=== PATIENT | male | born 1930 | race Caucasian/White ===

== ENCOUNTER 2016-10-10 06:25 | Emergency (ER) | payer MEDICARE, BC ==
[2016-10-10 06:34] VITALS: BP 136/60
[2016-10-10] MEDS ORDERED: PHENYLEPHRINE HCL 150 SPRAY BTL NS ONE ×2 (06:48→06:52)
--- OUTSIDE RECORDS SUMMARY | 2016-10-10 06:49 | XMS REPORT | Continuity of Care Document ---
:1930 Author Organization [facility] ([facility]) Address [address] [place] [address] Phone [phone] Care Team Providers Name Role Phone Jessica Moonjaiden Primary Care Provider [phone] Source Comments This disclosure is being made pursuant to the Care Everywhere program, applicable federal and state laws, and may not contain all informaitonavailable regarding this patient.[facility] ([facility]) Active Allergies and Adverse Reactions Allergen Noted Date Severity Reactions Comments Ciprofloxacin 09/27/2015 Unknown Possible reaction Current Medications Prescription Sig. Disp. Refills Start Date End Date Status ATORVASTATIN 40 mg Take 1 Tab by 11/07/2014 Active tablet mouth daily LEVOTHYROXINE 75 mcg Take 1 Tab by 09/14/2014 Active tablet mouth daily TAMSULOSIN 0.4 mg Take 1 Cap by 11/05/2014 Active capsule mouth daily FOLIC Take 1 Cap by Active ACID/MULTIVIT-MIN/LUTEI mouth daily N (CENTRUM SILVER PO) cholecalciferol Take 1,000 Units Active (VITAMIN D3) 1,000 unit by mouth daily tablet glucosamine & chondroit Take 2 capsules Active sul.Na 750-400 mg cmpk by mouth daily. calcium carbonate PO Take 1,000 mg by Active mouth daily artificial tears Instill 1 Drop Active (GENTEAL) 0.3 % onto both eyes 3 ophthalmic solution times daily as needed losartan 50 mg tablet Take 50 mg by 3 09/19/2015 Active mouth daily. amiodarone 200 mg Take 1 tablet 90 tablet 4 09/27/2015 Active tablet (200 mg total) by mouth daily. lactobacillus rhamnosus Take 1 capsule Active (gg) (CULTURELLE) 15 by mouth daily. billion cell capsule finasteride 5 mg tablet Take 5 mg by Active mouth daily. metoPROLol tartrate 50 Take 1 tablet 180 tablet 4 07/31/2016 Active mg tablet (50 mg total) by mouth 2 times daily. warfarin 1 mg tablet Take 1.5 tablets 60 tablet 8 08/09/2016 Active (1.5 mg total) by mouth at bedtime. Active Problems Problem Noted Date Severe sepsis(995.92) 05/28/2015 Non-sustained ventricular tachycardia 05/28/2015 Atrial fibrillation with RVR 05/26/2015 Eyelid lesion 11/17/2014 Paroxysmal atrial fibrillation Overview: Formatting of this note may be different from the original. CARDIOVASCULAR PROCEDURES ECHO/MUGA: Echo (EF.45, Mild Global Hypo) - 05/30/2010 Echo:Decreased LV systolic function.40-50% Apical echoes consistent with trabeculae are noted. Cannot rule out associated thrombi. No significant valvular disease. 05/26/2015 STRESS TESTS: Meño MPI (Normal EF, Large Inferior Scar) - 06/12/2010 Meño MPI (Normal EF(.54), MILD Inferior Scar) - 10/07/2015 Hyperlipemia Hypertension S/P carotid endarterectomy COPD (chronic obstructive pulmonary disease) H/O non-ST elevation myocardial infarction (NSTEMI) Resolved Problems Problem Noted Date Resolved Date UTI (urinary tract infection), bacterial 05/28/2015 07/19/2015 Elevated troponin 05/26/2015 07/31/2016 Most Recent Encounters Date Type Specialty Providers Description 08/09/2016 Refill Cardiac Rehabilitation Estela Conrad MD Dx: Paroxysmal atrial fibrillation (Primary Dx) 07/31/2016 Office Visit Heart and Vascular Estela Conrad MD Dx: Paroxysmal atrial fibrillation (Primary Dx) Social History Tobacco Use Types Packs/Day Years Used Date Former Smoker Smokeless Tobacco: Never Used Tobacco Cessation:Counseling Given: Yes Comments: Alcohol Use Drinks/Week oz/Week Comments No Last Filed Vital Signs Vital Sign Reading Time Taken Blood Pressure 118/70 07/31/2016 9:55 AM IN FILE OPERATOR Pulse 66 07/31/2016 9:55 AM IN FILE OPERATOR Temperature 36.8 C (98.2 F) 05/28/2015 8:32 AM IN FILE OPERATOR Respiratory Rate 18 05/28/2015 11:38 AM IN FILE OPERATOR Height 1.778 m (5' 10") 07/31/2016 9:55 AM IN FILE OPERATOR Weight 89.812 kg (198 lb) 07/31/2016 9:55 AM IN FILE OPERATOR Body Mass Index 28.41 07/31/2016 9:55 AM IN FILE OPERATOR Oxygen Saturation 96% 05/28/2015 8:32 AM IN FILE OPERATOR Plan of Care Date Type Specialty Providers Description 03/26/2017 Appointment Heart and Vascular Estela Conrad MD Chief Comp: Patient [address] [place] [address] Visit [phone] (Fax) Health Maintenance Due Date Last Done Comments Hepatitis B Vaccine (1 of 3 - Primary Series) 1930 Tdap Vaccine 1940 Lipid Disorder Screening 1948 Td Vaccine 1948 Zoster Vaccine 1989 Pneumococcal Vaccine (1 of 2 - PCV13) 1994 Influenza Vaccine: Seasonal (#1) 02/06/2016 Results from Last 3 Months Not on file
--- NOTE | 2016-10-10 06:58 | ERNOTE ---
ENT HPI Presenting Symptoms: nosebleed Time Seen by Provider: 10/10/16 06:40 Source: patient, family Exam Limitations: no limitations - Immun/Allergies/Home Medications Immunizations: IMMUNIZATION HX Immunizations Up to Date Yes History of Influenza Vaccine Yes Hx Pneumococcal Vaccination Yes Allergies/Adverse Reactions: Allergies Allergy/AdvReac Type Severity Reaction Status Date / Time ciprofloxacin [From Cipro] AdvReac Verified 10/10/16 06:34 ciprofloxacin HCl AdvReac Verified 10/10/16 06:34 [From Cipro] Home Medications: HOME MEDICATIONS Atorvastatin Calcium [Lipitor] 40 mg PO HS 12/22/14 [Last Taken 09/12/15 20:00] Levothyroxine Sodium [Synthroid] 75 mcg PO DAILY 12/22/14 [Last Taken 09/13/15 08:00] Multivit-Min/FA/Lycopene/Lut [Centrum Silver Tablet] 1 each PO DAILY 12/22/14 [ Last Taken 09/13/15 08:00] Tamsulosin HCl [Flomax] 0.4 mg PO DAILY@1800 12/22/14 [Last Taken 09/11/15] Albuterol Sulfate 2.5 mg IH BID PRN 05/25/15 [Last Taken 09/11/15] Albuterol Sulfate [Ventolin Hfa] 2 puff IH Q4H PRN 05/25/15 [Last Taken Unknown] Calcium/Magnesium/Vit D3 [Calcium 500 mg Tablet] 2 each PO HS 05/25/15 [Last Taken 09/12/15 20:00] Cholecalciferol (Vitamin D3) [Vitamin D3] 2,000 unit PO DAILY 05/25/15 [Last Taken 09/13/15 08:00] Glucosamine HCl 500 mg PO BID 05/25/15 [Last Taken 09/13/15 08:00] Acetaminophen [Tylenol] 650 mg PO QID PRN #20 tablet 09/12/15 [Last Taken Unknown] Warfarin Sodium [Coumadin] 2 mg PO WE 09/15/15 [Last Taken Unknown] Amiodarone HCl [Cordarone] 200 mg PO DAILY 02/22/16 [Last Taken Unknown] L.acidoph,Paracasei, B.lactis [Probiotic] 1 each PO DAILY 02/22/16 [Last Taken Unknown] Losartan Potassium [Cozaar] 50 mg PO DAILY 02/22/16 [Last Taken Unknown] Warfarin Sodium [Coumadin] 1 mg PO SUMOTUTHFRSA 02/22/16 [Last Taken Unknown] Finasteride [Proscar] 5 mg PO DAILY 04/25/16 [Last Taken Unknown] Metoprolol Tartrate [Lopressor] 50 mg PO BID #60 tablet 05/21/16 [Last Taken Unknown] - History of Present Illness Narrative: Pt had spontaneous onset of epistaxis while getting dressed this AM. pt put pressure on his nose and bleeding had stopped upon his arrival in the ED. INR was 5.22 yesterday Severity: Present: mild ENT Location: Present: nose - left nare Prearrival Treatment: Present: squeezing nostrils Modifying Factors - Worsens: Reports: medication - Pt's INR was found to be high yesterday and he is holding his coumadin today and tomorrow Review of Systems - Review of Systems Constitutional: Present: no symptoms reported EYE: Present: no symptoms reported ENT: Absent: nose pain, nose congestion Respiratory: Present: no symptoms reported Cardiology: Present: no symptoms reported Gastrointestinal/Abdominal: Present: no symptoms reported Genitourinary: Present: no symptoms reported Musculoskeletal: Present: no symptoms reported Skin: Present: no symptoms reported Neurological: Present: no symptoms reported Endocrine: Present: no symptoms reported Hematologic/Lymphatic: Present: no symptoms reported Psych: Present: no symptoms reported - Patient's Past Medical History Patient History - Medical: Cataracts, Hypothyroidism, UTI'S, Other Patient History - Cardiac/Respiratory: Atrial Fibrillation, COPD, Hypertension, Hyperlipidemia Patient History - Cancer: No Hx of Cancer, Skin Patient History - Surgical Procedures: Cataracts, Other Patient History - Other: None - Family History Sister Family History - Cardiac/Respiratory: No pertinent hx Mother Family History - Medical: , Diabetes Type 2 Family History - Cardiac/Respiratory: No pertinent hx, CVA/Stroke Father Family History - Medical: , Renal Disease Family History - Cardiac/Respiratory: No pertinent hx, COPD Brother Family History - Medical: Alzheimer's Disease Family History - Cardiac/Respiratory: COPD - Social History Living Situations: alone Abuse History: No History of abuse Psych History: No pertinent hx Smoking Status: Never smoker Alcohol Use: sober Drug Use: none - Immunizations Immunizations Up to Date: Yes Hx Pneumococcal Vaccination: Yes History of Influenza Vaccine: Yes Physical Exam - Physical Exam General Appearance: Present: wd/wn, alert, no apparent distress Eye Exam: Normal inspection: bilateral Ears, Nose, Throat: Absent: nasal congestion - fresh blood in floor of left nasal passage. No active bleeding noted. Site of bleeding not readily visible Neck: Present: normal inspection, nontender Respiratory: Present: no respiratory distress Extremity Exam: Present: normal inspection, normal range of motion Neurological Exam: Present: alert, oriented, normal mood/affect Skin Exam: Present: normal color, warm/dry ED Progress - Results and Orders Patient's Lab Results:: I have reviewed the patient's lab results. Results and Orders: Pt.s INR was 5.22 yesterday - Vital Signs Patient's Vital Signs:: I have reviewed the patient's vital signs. Vital Signs: Vital Signs 10/10/16 06:27 Temperature 35.9 C L Pulse Rate 75 Respiratory 14 Rate Blood Pressure 136/60 O2 Sat by Pulse 94 Oximetry - Progress/Reassessment Chief Complaint: Nose Bleed Departure Clinical Impression: Anterior epistaxis, Elevated INR - Departure Disposition: Home Follow Up Needed Condition: Fair Instructions: Nosebleed, [id number] Additional Instructions: may use nose spray 1 or 2 times a day for the next 2 days if you have any more bleeding. Return to ER if bleeding returns and you cannot get it to stop with pressure and the nose spray. Referrals: Rangel Moon MD [Primary Care Provider] -
== END 2016-10-10 07:00 | disposition home or self-care (01) ==
LOC: ER 06:25
DX: R04.0 Epistaxis (principal); T45.515A Adverse effect of anticoagulants, initial encounter; R79.1 Abnormal coagulation profile; E03.9 Hypothyroidism, unspecified; I48.91 Unspecified atrial fibrillation; Z79.01 Long term (current) use of anticoagulants; J44.9 Chronic obstructive pulmonary disease, unspecified; I10 Essential (primary) hypertension; E78.5 Hyperlipidemia, unspecified

== ENCOUNTER 2017-01-17 07:05 | Emergency (ER) | payer MEDICARE, BC ==
--- NOTE | 2017-01-17 07:41 | ERNOTE ---
<Yaw Dickinson - Last Filed: 01/17/17 07:44> Dizziness ER Record Presenting Symptoms: dizziness Time Seen by Provider: 01/17/17 07:28 Source: patient, family Exam Limitations: no limitations Immunizations: IMMUNIZATION HX Immunizations Up to Date Yes History of Influenza Vaccine Yes Hx Pneumococcal Vaccination Yes Allergies/Adverse Reactions: Allergies Allergy/AdvReac Type Severity Reaction Status Date / Time ciprofloxacin [From Cipro] AdvReac Verified 01/17/17 07:15 ciprofloxacin HCl AdvReac Verified 01/17/17 07:15 [From Cipro] Home Medications: HOME MEDICATIONS Atorvastatin Calcium [Lipitor] 40 mg PO HS 12/22/14 [Last Taken 09/12/15 20:00] Levothyroxine Sodium [Synthroid] 75 mcg PO DAILY 12/22/14 [Last Taken 09/13/15 08:00] Multivit-Min/FA/Lycopene/Lut [Centrum Silver Tablet] 1 each PO DAILY 12/22/14 [ Last Taken 09/13/15 08:00] Tamsulosin HCl [Flomax] 0.4 mg PO DAILY@1800 12/22/14 [Last Taken 09/11/15] Albuterol Sulfate 2.5 mg IH BID PRN 05/25/15 [Last Taken 09/11/15] Albuterol Sulfate [Ventolin Hfa] 2 puff IH Q4H PRN 05/25/15 [Last Taken Unknown] Calcium/Magnesium/Vit D3 [Calcium 500 mg Tablet] 2 each PO HS 05/25/15 [Last Taken 09/12/15 20:00] Cholecalciferol (Vitamin D3) [Vitamin D3] 2,000 unit PO DAILY 05/25/15 [Last Taken 09/13/15 08:00] Glucosamine HCl 500 mg PO BID 05/25/15 [Last Taken 09/13/15 08:00] Acetaminophen [Tylenol] 650 mg PO QID PRN #20 tablet 09/12/15 [Last Taken Unknown] Amiodarone HCl [Cordarone] 200 mg PO DAILY 02/22/16 [Last Taken Unknown] L.acidoph,Paracasei, B.lactis [Probiotic] 1 each PO DAILY 02/22/16 [Last Taken Unknown] Losartan Potassium [Cozaar] 50 mg PO DAILY 02/22/16 [Last Taken Unknown] Warfarin Sodium [Coumadin] 1 mg PO SUMOTUTHFRSA 02/22/16 [Last Taken Unknown] Finasteride [Proscar] 5 mg PO DAILY 04/25/16 [Last Taken Unknown] Metoprolol Tartrate [Lopressor] 50 mg PO BID #60 tablet 05/21/16 [Last Taken Unknown] Sulfamethoxazole/Trimethoprim [Bactrim Ds] 1 tab PO BID #28 tab 01/17/17 [Last Taken Unknown] - History of Present Illness Narrative: Dizzy for a few days, worse on standing. Feels like having trouble focusing. Timing and Duration: gradual onset Noted on awakening:: No Severity: max: moderate, severe Severity: currently: moderate Sense of movement: Present: vague Decreased ability to stand/walk:: Present: off balance Usually:: Present: walks w/o assistance Modifying Factors - (Improves): Reports: nothing Modifying Factors - (Worsens): Reports: standing position Review of Systems - Review of Systems Constitutional: Absent: recent illness EYE: Absent: vision changes ENT: Present: nasal drainage - especially before/ during eating Respiratory: Present: no symptoms reported Cardiology: Absent: chest pain, palpitations Gastrointestinal/Abdominal: Absent: nausea, vomiting Genitourinary: Present: no symptoms reported Musculoskeletal: Present: no symptoms reported Skin: Present: no symptoms reported Neurological: Absent: headache, weakness, numbness Endocrine: Present: other - blood sugars have been a little elevated Hematologic/Lymphatic: Present: no symptoms reported Psych: Present: no symptoms reported - Patient's Past Medical History Patient History - Medical: Cataracts, Hypothyroidism, UTI'S, Other Patient History - Cardiac/Respiratory: Atrial Fibrillation, COPD, Hypertension, Hyperlipidemia Patient History - Cancer: No Hx of Cancer, Skin Patient History - Surgical Procedures: Cataracts, Other Patient History - Other: None - Family History Sister Family History - Cardiac/Respiratory: No pertinent hx Mother Family History - Medical: , Diabetes Type 2 Family History - Cardiac/Respiratory: No pertinent hx, CVA/Stroke Father Family History - Medical: , Renal Disease Family History - Cardiac/Respiratory: No pertinent hx, COPD Brother Family History - Medical: Alzheimer's Disease Family History - Cardiac/Respiratory: COPD - Social History Living Situations: home Abuse History: No History of abuse Psych History: No pertinent hx Alcohol Use: sober Drug Use: none - Immunizations Immunizations Up to Date: Yes Hx Pneumococcal Vaccination: Yes History of Influenza Vaccine: Yes Physical Exam - Physical Exam General Appearance: Present: wd/wn, alert, no apparent distress Head Exam: Present: normal inspection, no evidence of injury Eye Exam: Normal inspection: bilateral, PERRL: bilateral, EOMI: bilateral Ears, Nose, Throat: Present: nasal congestion - pale mucosa, normal pharynx Neck: Present: normal inspection, nontender, supple Respiratory: Present: no respiratory distress, normal breath sounds, lungs clear Cardiovascular/Chest: Present: bradycardia, irregularly irregular Gastrointestinal/Abdominal: Present: normal bowel sounds, nontender Back Exam: Present: no CVA tenderness, no vertebral tenderness Extremity Exam: Present: normal inspection, no edema Neurological Exam: Present: alert, oriented, normal mood/affect, no motor/ sensory deficits, public address announcer II-XII nml as tested, normal cerebellar test Skin Exam: Present: normal color, warm/dry Lymphatic Exam: Present: no adenopathy ED Progress - Vital Signs Vital Signs: Vital Signs 01/17/17 01/17/17 07:11 07:28 Temperature 35.9 C L Pulse Rate 64 61 Respiratory 12 12 Rate Blood Pressure 114/64 105/59 O2 Sat by Pulse 93 95 Oximetry - Progress/Reassessment Chief Complaint: Dizziness - Transfer of Care Physician Sign Out: Yaw Dickinson Receiving Physician: Wilder Kiran Expected Disposition: Discharge Departure Clinical Impression: Dizziness, UTI (urinary tract infection) - Departure Disposition: Home self-care Condition: Fair Instructions: Urinary Tract Infection, Adult, [id number] Referrals: Rangel Moon MD [Primary Care Provider] - Prescriptions: Sulfamethoxazole/Trimethoprim [Bactrim Ds] 1 tab PO BID #28 tab <Wilder Kiran - Last Filed: 01/17/17 09:10> Dizziness ER Record Immunizations: IMMUNIZATION HX Immunizations Up to Date Yes History of Influenza Vaccine Yes Hx Pneumococcal Vaccination Yes ED Progress - Vital Signs Vital Signs: Vital Signs 01/17/17 01/17/17 01/17/17 07:11 07:28 07:50 Temperature 35.9 C L Pulse Rate 64 61 61 Respiratory 12 12 12 Rate Blood Pressure 114/64 105/59 98/65 O2 Sat by Pulse 93 95 93 Oximetry 01/17/17 01/17/1717 07:58 08:10 08:33 Temperature Pulse Rate 61 59 L 58 L Respiratory 12 21 H Rate Blood Pressure 122/59 116/58 O2 Sat by Pulse 95 95 Oximetry 01/17/17 09:01 Temperature Pulse Rate 57 L Respiratory 14 Rate Blood Pressure 121/60 O2 Sat by Pulse 95 Oximetry
[2017-01-17 07:56] LABS: Hematocrit 37.5 % (42.0-52.0); Hemoglobin 12.6 gm/dL (13.5-18.0); Mean Cell Volume 90.8 fl (78-100); Mean Corpuscular Hemoglobin 30.5 pg (27-31); Mean Corpuscular Hgb Conc 33.6 g/dl (32-36); Mean Platelet Volume 10.1 fl (6.0-9.5); Neutrophil # 5.7 K/mm3 (1.3-6.0); Neutrophil % 63.4 % (42-75.0); Platelet Count 177 K/mm3 (150-450); Red Blood Count 4.13 M/mm3 (4.7-6.0); Red Cell Distribution Width 14.9 % (11.5-14.0)
[2017-01-17 08:09] LABS: Albumin * 3.2 gm/dl (3.4-5.0); Anion Gap 10.3 mmol/L (6.8-13.8); BUN/Creatinine Ratio 16.9 (9.0-21.6); Bilirubin, Total 0.6 mg/dL (0.0-1.1); Ca. Corrected For Albumin 8.8 mg/dL (8.4-10.2); Calcium * 8.5 mg/dL (7.9-10.9); Carbon Dioxide 26.9 mmol/L (24-32.6); Potassium 4.2 mmol/L (3.4-4.6); Total Protein 6.9 gm/dL (6.2-8.2)
[2017-01-17 08:18] LABS: Urine Bilirubin Negative (NEGATIVE); Urine Blood 25 /ul (NEGATIVE); Urine Ketone Negative (NEGATIVE); Urine Protein Negative (NEGATIVE); Urine Urobilinogen Normal (NORMAL)
[2017-01-17 08:24] LABS: Urine Appearance Cloudy; Urine Color Yellow; Urine Nitrite Positive (NEGATIVE); Urine WBC >50 /hpf (0-5)
[2017-01-17 08:25] LABS: Urine Bacteria 2+; Urine RBC 0-5 /hpf (0-5)
[2017-01-17 09:20] VITALS: BP 117/59
== END 2017-01-17 09:21 | disposition home or self-care (01) ==
LOC: ER 07:05
DX: R42 Dizziness and giddiness (principal); N39.0 Urinary tract infection, site not specified; E03.9 Hypothyroidism, unspecified; I48.91 Unspecified atrial fibrillation; Z79.01 Long term (current) use of anticoagulants; J44.9 Chronic obstructive pulmonary disease, unspecified; I10 Essential (primary) hypertension; E78.5 Hyperlipidemia, unspecified; Z85.828 Personal history of other malignant neoplasm of skin

== ENCOUNTER 2017-05-04 08:38 | Emergency (ER) | payer MEDICARE, BC ==
[2017-05-04 09:21] LABS: Hematocrit 41.2 % (42.0-52.0); Hemoglobin 13.9 gm/dL (13.5-18.0); Mean Cell Volume 93.4 fl (78-100); Mean Corpuscular Hemoglobin 31.5 pg (27-31); Mean Corpuscular Hgb Conc 33.7 g/dl (32-36); Neutrophil # 5.9 K/mm3 (1.3-6.0); Neutrophil % 66.9 % (42-75.0); Platelet Count 186 K/mm3 (150-450); Red Blood Count 4.41 M/mm3 (4.7-6.0); Red Cell Distribution Width 14.6 % (11.5-14.0); White Blood Count 8.8 K/mm3 (4.0-10.5)
[2017-05-04 09:31] LABS: Urine Bilirubin Negative (NEGATIVE); Urine Ketone Negative (NEGATIVE); Urine Protein Negative (NEGATIVE); Urine Urobilinogen Normal (NORMAL)
[2017-05-04 09:31] LABS: INR 1.79 INR (0.90-1.10)
[2017-05-04 09:40] LABS: Urine Appearance Slightly Cloudy; Urine Blood 10 /ul (NEGATIVE); Urine Color Yellow; Urine Nitrite Positive (NEGATIVE)
[2017-05-04 09:41] LABS: Urine Bacteria 3+; Urine RBC TRACE /hpf (0-5); Urine WBC 25-50 /hpf (0-5)
[2017-05-04 09:41] LABS: ALT 30 U/L (19-67); AST 22 U/L (0-48); Albumin * 3.5 gm/dl (3.4-5.0); Alkaline Phosphatase * 115 U/L (50-170); BUN/Creatinine Ratio 13.7 (9.0-21.6); Bilirubin, Total 0.8 mg/dL (0.0-1.1); Blood Urea Nitrogen 14 mg/dL (6-23); Ca. Corrected For Albumin 9.1 mg/dL (8.4-10.2); Carbon Dioxide 28.4 mmol/L (24-32.6); Chloride 103 mmol/L (97-106); Glucose * 112 mg/dL (70-110); Potassium 4.4 mmol/L (3.4-4.6); Sodium 141 mmol/L (132-142); Total Protein 7.4 gm/dL (6.2-8.2)
[2017-05-04 09:42] LABS: Troponin I Less than 0.017 ng/ml (0.00-0.10)
[2017-05-04] MEDS ORDERED: CEFUROXIME AXETIL 500 MG TABLET PO ONE (10:11)
[2017-05-04] MEDS ORDERED: CEFUROXIME AXETIL 500 MG TABLET ONE (10:14)
[2017-05-04 10:18] VITALS: BP 150/64
--- NOTE | 2017-05-04 10:29 | ERNOTE ---
Trauma/Assault HPI - Narrative Date of Service: 05/04/17 - General Stated Complaint: COLLAPSED Time Seen by Provider: 05/04/17 08:51 Source: patient Exam Limitations: no limitations - Immun/Allergies/Home Medications Immunizations: IMMUNIZATION HX Immunizations Up to Date Yes History of Influenza Vaccine Yes Hx Pneumococcal Vaccination Yes Allergies/Adverse Reactions: Allergies ciprofloxacin [From Cipro] Adverse Reaction (Verified 05/04/17 08:49) ciprofloxacin HCl [From Cipro] Adverse Reaction (Verified 05/04/17 08:49) Home Medications: HOME MEDICATIONS Atorvastatin Calcium [Lipitor] 40 mg PO HS 12/22/14 [Last Taken 09/12/15 20:00] Levothyroxine Sodium [Synthroid] 75 mcg PO DAILY 12/22/14 [Last Taken 09/13/15 08:00] Multivit-Min/FA/Lycopene/Lut [Centrum Silver Tablet] 1 each PO DAILY 12/22/14 [ Last Taken 09/13/15 08:00] Albuterol Sulfate 2.5 mg IH BID PRN 05/25/15 [Last Taken 09/11/15] Albuterol Sulfate [Ventolin Hfa] 2 puff IH Q4H PRN 05/25/15 [Last Taken Unknown] Calcium/Magnesium/Vit D3 [Calcium 500 mg Tablet] 2 each PO HS 05/25/15 [Last Taken 09/12/15 20:00] Cholecalciferol (Vitamin D3) [Vitamin D3] 2,000 unit PO DAILY 05/25/15 [Last Taken 09/13/15 08:00] Glucosamine HCl 500 mg PO BID 05/25/15 [Last Taken 09/13/15 08:00] Acetaminophen [Tylenol] 650 mg PO QID PRN #20 tablet 09/12/15 [Last Taken Unknown] Amiodarone HCl [Cordarone] 200 mg PO DAILY 02/22/16 [Last Taken Unknown] L.acidoph,Paracasei, B.lactis [Probiotic] 1 each PO DAILY 02/22/16 [Last Taken Unknown] Losartan Potassium [Cozaar] 50 mg PO DAILY 02/22/16 [Last Taken Unknown] Warfarin Sodium [Coumadin] 1 mg PO DAILY 02/22/16 [Last Taken Unknown] Metoprolol Tartrate [Lopressor] 50 mg PO BID #60 tablet 05/21/16 [Last Taken Unknown] Cefuroxime Axetil [Ceftin] 250 mg PO Q12H #20 tab 05/04/17 [Last Taken Unknown] Nitroglycerin [Nitrostat] 0.4 mg SL Q5MIN PRN 05/04/17 [Last Taken Unknown] - History of Present Illness Narrative: Patient presents to the ED after a fall. He hit his face and broke his dentures. Initially he told be he lost his balance, then he changed his mind abd thought maybe he passed out. Family states he has done this before with a UTI. he has some mild facial pain. No neck or back pain. Denies other injuries. No CP or SOB. No abdominal pain. He denies acute focal N/T/W. Is on Warfarin. No active bleeding. dT UTD. Here with family. Location Occurred: Reports: home Pain Location: Reports: face Method of Injury: Reports: fall Severity: mild Modifying Factors - (Improves): Reports: other - nothing Modifying Factors - (Worsens): Reports: other - nothing Loss of Consciousness: Reports: unsure Associated Symptoms - Trauma: Denies: headache, confusion, slurred speech, vision changes, chest pain, shortness of breath, abdominal pain Review of Systems - Review of Systems Constitutional: Absent: fever EYE: Present: other - recent eye surgery ENT: Absent: sore throat Respiratory: Absent: shortness of breath Cardiology: Absent: chest pain Gastrointestinal/Abdominal: Absent: abdominal pain Skin: Absent: rash Neurological: Absent: weakness - Patient's Past Medical History Patient History - Medical: Cataracts, Hypothyroidism, UTI'S, Other Patient History - Cardiac/Respiratory: Atrial Fibrillation, COPD, Hypertension, Hyperlipidemia Patient History - Cancer: No Hx of Cancer, Skin Patient History - Surgical Procedures: Cataracts, Other Patient History - Other: None - Family History Sister Family History - Cardiac/Respiratory: No pertinent hx Mother Family History - Medical: , Diabetes Type 2 Family History - Cardiac/Respiratory: No pertinent hx, CVA/Stroke Father Family History - Medical: , Renal Disease Family History - Cardiac/Respiratory: No pertinent hx, COPD Brother Family History - Medical: Alzheimer's Disease Family History - Cardiac/Respiratory: COPD - Social History Living Situations: home Abuse History: No History of abuse Psych History: No pertinent hx Smoking Status: Never smoker Alcohol Use: none Drug Use: none - Immunizations Immunizations Up to Date: Yes Hx Pneumococcal Vaccination: Yes History of Influenza Vaccine: Yes Physical Exam - Physical Exam General Appearance: Present: alert, no apparent distress Head Exam: Present: normal inspection. Absent: Concepcion's Sign, raccoon eyes Eye Exam: Normal inspection: bilateral - post surgical changes left eye noted, PERRL: bilateral Ears, Nose, Throat: Present: other - Mild bruising left zygomatic arch, appears older. Abrasion maxillary ridge. No laceration to repair or active bleeding Neck: Present: normal inspection, nontender, other - no posterior C-spine tenderness. No T/L spine tenderness Respiratory: Present: no respiratory distress, normal breath sounds, no accessory muscle use, lungs clear Cardiovascular/Chest: Present: regular rate, rhythm, normal peripheral pulses Gastrointestinal/Abdominal: Present: normal bowel sounds, nontender, soft Back Exam: Present: no vertebral tenderness Extremity Exam: Present: other - no deformity of suggestion of fracture Neurological Exam: Present: alert, no motor/sensory deficits, other - No acute unilateral focal motor or sensory deficits. Gait stable. Skin Exam: Present: normal color, warm/dry ED Progress - Results and Orders Patient's Lab Results:: I have reviewed the patient's lab results. - Vital Signs Patient's Vital Signs:: I have reviewed the patient's vital signs. Vital Signs: Vital Signs 05/04/17 05/04/17 05/04/17 08:43 09:14 10:01 Temperature 36.5 C Pulse Rate 60 60 55 L Respiratory 16 12 12 Rate Blood Pressure 166/75 155/60 140/58 O2 Sat by Pulse 98 97 95 Oximetry - EKG EKG: NSR EKG read: Interp. by me EKG Comments: NSR rate 61. Non-specific changes, no STEMI - CT/Ultrasound CT/Ultrasound Narrative: I reviewed official radiology report for HCT and Max/Fac CT. - Progress/Reassessment Chief Complaint: Fall Progress Note-Subjective: 05/04/17 10:27 Patient has UTI. No evidence of sepsis or toxicity. He declines hospital observation for this event this morning. He understands risks and benefits but wants to go home. I discussed warning signs and reasons to return as well as the need for close f/u. Departure Clinical Impression: Fall, Facial injury, Head injury, UTI (urinary tract infection) - Departure Disposition: Home self-care Condition: Stable Instructions: Urinary Tract Infection, Adult, [id number] Additional Instructions: Antibiotics as directed. Antibiotics can impact your coumadin, you will need to have this closely monitored by your doctor. Return here if you change your mind about observation, develop fever or if your condition worsens or changes in any way. Follow-up with your doctor in the next 2-3 days for a re-check. Referrals: Rangel Moon MD [Primary Care Provider] - Prescriptions: Cefuroxime Axetil [Ceftin] 250 mg PO Q12H #20 tab
== END 2017-05-04 10:32 | disposition home or self-care (01) ==
LOC: ER 08:38
DX: S09.93XA Unspecified injury of face, initial encounter (principal); W18.30XA Fall on same level, unspecified, initial encounter; Z91.81 History of falling; Y92.009 Unspecified place in unspecified non-institutional (private) residence as the place of occurrence of the external cause; S09.90XA Unspecified injury of head, initial encounter; N39.0 Urinary tract infection, site not specified; E03.9 Hypothyroidism, unspecified; I48.91 Unspecified atrial fibrillation; Z79.01 Long term (current) use of anticoagulants; J44.9 Chronic obstructive pulmonary disease, unspecified; I10 Essential (primary) hypertension; E78.5 Hyperlipidemia, unspecified; Z85.828 Personal history of other malignant neoplasm of skin